=== PATIENT | male | born 1975 | race Caucasian/White ===

== ENCOUNTER 2018-04-25 20:49 | Emergency (ER) | payer MEDICAID | END 2018-04-25 21:45 | disposition home or self-care (01) | LOC: FTE 20:49 | DX: H00.11 Chalazion right upper eyelid (principal) | CPT/HCPCS: 99283; Z7502 ==

== ENCOUNTER 2018-07-21 10:44 | Emergency (ER) | payer MEDICAID ==
[2018-07-21] MEDS: ACETAMINOPHEN 325 MG TAB PO (12:58)
[2018-07-21] MEDS: KETOROLAC 30 MG INJ IV (12:58)
[2018-07-21 13:08] LABS: ADD MAN DIFF? NO
[2018-07-21 13:12] LABS: BASOPHILS % 0.2 % (0.0-2.0); EOSINOPHILS % 0.1 % (0.0-7.0); HEMATOCRIT 44.7 % (42.0-52.0); HEMOGLOBIN 14.9 g/dl (14.0-18.0); LYMPHOCYTES % 9.5 % (15.0-51.0); MEAN CORPUSCULAR HEMOGLOBIN 29.5 pg (29.0-33.0); MEAN CORPUSCULAR HGB CONC 33.3 g/dl (32.0-37.0); MEAN CORPUSCULAR VOLUME 88.5 fl (82.0-101.0); MEAN PLATELET VOLUME 10.1 fl (7.4-10.4); MONOCYTE # 0.8 10^3/ul (0.3-0.9); MONOCYTES % 7.2 % (0.0-11.0); NEUTROPHIL # 8.9 10^3/ul (1.6-7.5); NEUTROPHILS % 82.7 % (39.0-77.0); PLATELET COUNT 208 10^3/UL (140-415); RED BLOOD COUNT 5.05 10^6/ul (4.70-6.10); RED CELL DISTRIBUTION WIDTH 13.7 % (11.5-14.5)
[2018-07-21 13:12] LABS: WHITE BLOOD COUNT 10.7 10^3/ul (4.8-10.8)
[2018-07-21 13:36] LABS: ALANINE AMINOTRANSFERASE 45 IU/L (13-69); ALBUMIN 4.4 g/dl (3.3-4.9); ALBUMIN/GLOBULIN RATIO 1.22; ALKALINE PHOSPHATASE 55 IU/L (42-121); ANION GAP 12 (8-16); ASPARTATE AMINO TRANSFERASE 40 IU/L (15-46); BILIRUBIN,INDIRECT 1.1 mg/dl (0-1.1); BILIRUBIN,TOTAL 1.1 mg/dl (0.2-1.3); BLOOD UREA NITROGEN 11 mg/dl (7-20); CALCIUM 9.2 mg/dl (8.4-10.2); CARBON DIOXIDE 31 mmol/L (21-31); CHLORIDE 101 mmol/L (97-110); CREATININE 0.82 mg/dl (0.61-1.24); GLUCOSE 69 mg/dl (70-220); POTASSIUM 4.3 mmol/L (3.5-5.1); SODIUM 140 mmol/L (135-144)
[2018-07-21 14:15] LABS: ERYTHROCYTE SEDIMENTATION RATE 5 mm/Hr (0-15)
[2018-07-21] MEDS: CEFTRIAXONE 1 GM/50 ML (PMX) 50 ML IVPB (14:48)
== END 2018-07-21 15:20 | disposition home or self-care (01) ==
LOC: FTE 10:44
DX: M70.52 Other bursitis of knee, left knee (principal); L03.116 Cellulitis of left lower limb; L02.416 Cutaneous abscess of left lower limb; Y93.89 Activity, other specified
CPT/HCPCS: 73562; 73610; 80053; 82962; 85025; 85651; 86140; 96374; 96375; 99284-25

== ENCOUNTER 2018-07-24 08:20 | Emergency (ER) | payer MEDICAID ==
[2018-07-24] MEDS: DIPHTH/TET/ACEL PERTUSS (ADULT) 0.5 ML VIAL IM* (09:35)
== END 2018-07-24 10:41 | disposition home or self-care (01) ==
LOC: FTE 08:20
DX: L03.116 Cellulitis of left lower limb (principal); M71.9 Bursopathy, unspecified; Z23 Encounter for immunization
CPT/HCPCS: 90471; 90715; 99283-25

== ENCOUNTER 2019-02-02 14:12 | Emergency (ER) | payer MEDICAID ==
[2019-02-02 16:46] LABS: ADD MAN DIFF? NO
[2019-02-02 16:48] LABS: BASOPHILS % 0.6 % (0.0-2.0); EOSINOPHILS # 0.2 10^3/ul (0.0-0.5); EOSINOPHILS % 3.2 % (0.0-7.0); HEMATOCRIT 43.6 % (42.0-52.0); HEMOGLOBIN 14.4 g/dl (14.0-18.0); LYMPHOCYTES # 1.6 10^3/ul (0.8-2.9); LYMPHOCYTES % 32.2 % (15.0-51.0); MEAN CORPUSCULAR HEMOGLOBIN 28.7 pg (29.0-33.0); MEAN PLATELET VOLUME 9.7 fl (7.4-10.4); MONOCYTE # 0.4 10^3/ul (0.3-0.9); MONOCYTES % 7.9 % (0.0-11.0); NEUTROPHIL # 2.8 10^3/ul (1.6-7.5); NEUTROPHILS % 55.7 % (39.0-77.0); PLATELET COUNT 228 10^3/UL (140-415); RED BLOOD COUNT 5.01 10^6/ul (4.70-6.10); RED CELL DISTRIBUTION WIDTH 13.3 % (11.5-14.5)
[2019-02-02 16:48] LABS: WHITE BLOOD COUNT 4.9 10^3/ul (4.8-10.8)
[2019-02-02 16:51] LABS: ADD UMIC NO; UR ASCORBIC ACID NEGATIVE (NEGATIVE); UR BILIRUBIN (Dip) NEGATIVE (NEGATIVE); UR BLOOD (Dip) NEGATIVE (NEGATIVE); UR CLARITY CLEAR (CLEAR); UR COLOR STRAW (YELLOW); UR GLUCOSE (Dip) NEGATIVE (NEGATIVE); UR KETONES (Dip) NEGATIVE (NEGATIVE); UR LEUKOCYTE ESTERASE (Dip) NEGATIVE Leu/ul (NEGATIVE); UR NITRITE (Dip) NEGATIVE (NEGATIVE); UR SPECIFIC GRAVITY (Dip) 1.005 (1.003-1.030); UR TOTAL PROTEIN (Dip) NEGATIVE (NEGATIVE); UR UROBILINOGEN (Dip) NEGATIVE (NEGATIVE)
[2019-02-02 17:12] LABS: ANION GAP 9 (5-13); BLOOD UREA NITROGEN 11 mg/dl (7-20); CALCIUM 9.3 mg/dl (8.4-10.2); CARBON DIOXIDE 29 mmol/L (21-31); CHLORIDE 102 mmol/L (97-110); CREATININE 0.73 mg/dl (0.61-1.24); Estimated GFR > 60 mL/min (>60); GLUCOSE 90 mg/dl (70-220); POTASSIUM 4.4 mmol/L (3.5-5.1); SODIUM 140 mmol/L (135-144)
== END 2019-02-02 18:00 | disposition home or self-care (01) ==
LOC: FTE 14:12
DX: H81.10 Benign paroxysmal vertigo, unspecified ear (principal)
CPT/HCPCS: 70450; 80048; 81003; 85025; 93005; 99285-25

== ENCOUNTER 2019-04-24 00:38 | Emergency (ER) | payer MEDICAID ==
[2019-04-24] MEDS: KETOROLAC 60 MG INJ IM (02:16)
== END 2019-04-24 03:06 | disposition home or self-care (01) ==
LOC: FTE 00:38
DX: S29.012A Strain of muscle and tendon of back wall of thorax, initial encounter (principal); X58.XXXA Exposure to other specified factors, initial encounter; Y92.9 Unspecified place or not applicable
CPT/HCPCS: 96372; 99284-25

== ENCOUNTER 2019-07-15 20:25 | Emergency (ER) | payer MEDICAID ==
[2019-07-15] MEDS: KETOROLAC 60 MG INJ IM (21:45)
[2019-07-15] MEDS: LIDOCAINE 1% (MDV) 20 ML INJ SC (21:48)
[2019-07-15] MEDS: CEFTRIAXONE 1 GM INJ IM (21:48)
== END 2019-07-15 22:15 | disposition home or self-care (01) ==
LOC: FTE 20:25
DX: M70.52 Other bursitis of knee, left knee (principal); F17.210 Nicotine dependence, cigarettes, uncomplicated; L03.818 Cellulitis of other sites; Y93.89 Activity, other specified
CPT/HCPCS: 96372; 99284-25